=== PATIENT | female | born 1965 | race Caucasian/White ===

== ENCOUNTER 2016-11-05 10:25 | Inpatient (IN) | payer MEDICAID, SELFPAY ==
[2016-11-05 11:17] LABS: #Basophils 0.1 thou/uL (0.0-0.2); #Eosinphils 0.2 thou/uL (0.0-0.7); #Lymphocytes 2.1 thou/uL (1.20-3.40); #Monocytes 0.5 thou/uL (0.11-0.59); #Neutrophils 5.4 thou/uL (1.40-6.50); %Basophils 0.8 % (0.0-1.0); %Eosinophils 2.4 % (0.0-10.0); %Lymphocytes 25.3 % (21.0-51.0); %Monocytes 5.7 % (0.0-10.0); Hematocrit 39.1 % (36.0-47.0); Mean Platelet Volume 7.3 fL (7.4-10.4); Red Blood Cell (RBC) Count 4.16 mill/uL (4.20-5.40); White Blood Cell (WBC) Count 8.3 thou/uL (4.8-10.8)
[2016-11-05 11:41] LABS: ALT (SGPT) 20 U/L (8-55); AST (SGOT) 26 U/L (5-34); Alkaline Phosphatase 117 U/L (40-150); Anion Gap 13 mmol/L (10-20); BUN (Urea Nitrogen) 13 mg/dL (7.0-18.7); Bilirubin, Total 0.6 mg/dL (0.2-1.2); Calc. Creatinine Clearance 0 mL/min (70-130); Calcium 9.2 mg/dL (7.8-10.44); Carbon Dioxide 29 mmol/L (22-29); Chloride 99 mmol/L (98-107); Estimated GFR-MDRD 80; Globulin 4.8 g/dL (2.4-3.5); Protein, Total 8.4 g/dL (6.0-8.3)
[2016-11-05] MEDS ORDERED: cefTRIAXone\\ROCEPHIN 1 GM in Sodium Chloride 0.9% 100 ML IVPB SCH (11:45)
--- NOTE | 2016-11-05 12:46 | CT ---
CONTRAST ENHANCED CT IMAGES SOFT TISSUE NECK: Axial images are obtained from the middle of the orbits through the thoracic inlet. IV contrast was given. HISTORY: A 51-year-old with a history of soft tissue neck masses and swelling. The patient has had prior ant ibiotics which has reduced the swelling. FINDINGS: Contrast-enhanced CT images of the soft tissue neck demonstrate a large approximately 2.2 x 2.3 cm r etropharyngeal mass with central areas of necrosis where there are focal areas of enhancement. Ther e is a large mass involving much of the left thyroid lobe. The margins cannot be determined. There may be a mass which originates in the left thyroid lobe extending into the surrounding soft tissues or there may be a shaan which invades and displaces the left thyroid lobe. The mass appears to be ce ntered in the left neck just below the thyroid cartilage extending medially and posteriorly to the t hyroid cartilage extending upwards posteriorly all the way to the level of the hyoid. The mass exte nds laterally all the way to the left sternocleidomastoid muscle. It displaces the left common martinez tid posteriorly. Flow definitively is not seen in the left internal jugular vein. There is also ex tensive and partially necrotic left level 2, 3, and 4 lymph nodes as well as cystic and enlarged lef t 5A and 5B lymph nodes. Enlarged left supraclavicular lymph nodes are also seen. Due to the cysti c components and the large mass in the left neck malignancy is certainly in the differential diagnos is where this originates from the left thyroid which has metastasized adjacent lymph nodes or possib ly lymphoma or other lymphoproliferative malignancy cannot be excluded. ENT consultation is recomme nded. Additional smaller subcentimeter right level 2, 3, and 4 lymph nodes also seen. IMPRESSION: Large left subglottic neck mass extending posteriorly to the thyroid cartilage in the prevertebral s pace migrating upward to the level of the hypopharyngeal region. There is extensive and marked left multilevel lymphadenopathy and supraclavicular lymphadenopathy. Less significant right-sided lymph adenopathy is also seen. POS: SUE
[2016-11-05] MEDS ORDERED: Meropenem 1 GM VIAL ONE (12:52)
[2016-11-05] MEDS ORDERED: Dexamethasone 4 mg/ml Vial ONE (12:52)
[2016-11-05] MEDS ORDERED: Dextrose 5% in Water 1,000 ML IV PRN (13:39)
[2016-11-05] MEDS ORDERED: Mag-Al 1200 mg/1200 mg/30 ML UDCUP PO PRN (13:39)
[2016-11-05] MEDS ORDERED: Ondansetron HCl/PF 4 MG/2 ML Vial IVP PRN (13:39)
[2016-11-05] MEDS ORDERED: Ondansetron ODT 4 MG TAB PO PRN (13:39)
[2016-11-05] MEDS ORDERED: Dextrose 50% Abboject 50 ML SYRINGE SLOW IVP PRN (13:39)
[2016-11-05] MEDS ORDERED: Bisacodyl 10 MG SUPP PR PRN (13:39)
[2016-11-05] MEDS ORDERED: Insulin Regular 300 UNITS/3 ML VIAL SC PRN ×2 (13:39)
[2016-11-05] MEDS ORDERED: Calcium Carbonate 500 MG ChewTAB PO PRN (13:39)
[2016-11-05] MEDS ORDERED: Acetaminophen 650 MG Suppository PR PRN (13:39)
[2016-11-05] MEDS ORDERED: Acetaminophen 650 MG/20.3 ML UDCUP PO PRN (13:41)
[2016-11-05] MEDS ORDERED: Meropenem 1 GM in Sodium Chloride 0.9% 100 ML IVPB SCH (13:45)
--- NOTE | 2016-11-05 14:04 | HP ---
DATE OF ADMISSION: 11/05/2016 PRIMARY CARE PHYSICIAN: Dr. Benito. CHIEF COMPLAINT: Neck swelling. HISTORY OF PRESENT ILLNESS: Patient is a 51-year-old female with hypertension, diabetes mellitus type 2, and hypothyroidism who presented to the emergency room from primary care physician with above complaints. The patient was seen by her primary care physician today for her routine followup for diabetes. She was found to have neck mass for which she was referred to the emergency room. Over the last 4-6 weeks, patient has difficulty swallowing, especially solid. Her symptoms have progressively worsened. Last week, she had flu-like symptoms including fever and chills that has resolved. She denies any stridor or shortness of breath. She denies any pain in the neck. She denies any history of recent travel or sick contacts. One and a half years ago, she had similar illness for which her primary care physician prescribed antibiotics with good improvement. In the emergency room, initial vital signs showed temperature 98, respirations 18, pulse of 77, blood pressure 131/86 with O2 saturation 98% on room air. She underwent a CT scan of the soft tissue of the neck that was consistent with subglottic neck mass concerning for malignancy. Official CT report is pending at this time. She received Decadron with antibiotics and IV fluid in the emergency room. PAST MEDICAL HISTORY: 1. Diabetes mellitus type 2. 2. Hypertension. 3. Hypothyroidism. PAST SURGICAL HISTORY: x1. ALLERGIES: Patient denies any drug allergies. CURRENT HOME MEDICATIONS: The patient is on some oral medication for diabetes and levothyroxine. She is unable to recall the name. Family to bring the list of medications. SOCIAL HISTORY: Patient currently smokes less than half a pack a day for many years. She denies alcohol or drug use. FAMILY HISTORY: Positive for diabetes. REVIEW OF SYSTEMS: The following complete review of systems was negative, unless otherwise mentioned in the HPI or below: Constitutional: Weight loss or gain, ability to conduct usual activities. Skin: Rash, itching. Eyes: Double vision, pain. ENT/Mouth: Nose bleeding, neck stiffness, pain, tenderness. Cardiovascular: Palpitations, dyspnea on exertion, orthopnea. Respiratory: Shortness of breath, wheezing, cough, hemoptysis, fever or night sweats. Gastrointestinal: Poor appetite, abdominal pain, heartburn, nausea, vomiting, constipation, or diarrhea. Genitourinary: Urgency, frequency, dysuria, nocturia. Musculoskeletal: Pain, swelling. Neurologic/Psychiatric: Anxiety, depression. Allergy/Immunologic: Skin rash, bleeding tendency. PHYSICAL EXAMINATION: VITAL SIGNS: As discussed above. GENERAL: A 51-year-old morbidly obese female in no apparent distress, appears comfortable. HEENT: Head atraumatic, normocephalic. Sclerae are anicteric. Moist mucous membranes. No oral lesion. NECK: Supple, no JVD, no carotid bruit. There was a large area of swelling with some tenderness over the left neck. Again due to body habitus, it cannot be completely evaluated. LUNGS: Clear to auscultation bilaterally. HEART: S1 and S2 present. Regular rate and rhythm. ABDOMEN: Soft, nontender, bowel sounds present. EXTREMITIES: No edema or calf tenderness. NEUROLOGIC: Grossly nonfocal, moves all four extremities. PSYCHIATRY: Alert, awake, oriented x3. SKIN: Warm and dry. LYMPH NODES: No palpable lymph nodes in the neck. PERIPHERAL VASCULAR: Radial pulses palpable bilaterally. MUSCULOSKELETAL: No joint swelling or tenderness. LABORATORY DATA AND IMAGIN. CBC showed WBC of 8.3 with hemoglobin 13.4, hematocrit 39.1, and platelet of 321. 2. Chemistries showed sodium 137, potassium 3.9, chloride 99, bicarbonate 29, BUN 13, creatinine 0.77. CRP was 2.7. test was normal. 3. CT of the neck by my review as discussed above. IMPRESSION AND PLAN: 1. Cervical lymphadenopathy with swallowing difficulty. Exact etiology is unclear. Possibilities include infectious versus malignancy. We will empirically cover her with antibiotics. She received a dose of Decadron in the emergency room. We will discuss with ENT if it is necessary to continue steroids. We will monitor oxygen continuously. Nebulizer treatment will be ordered. Oxygen p.r.n. 2. Diabetes mellitus type 2. We will start her on insulin sliding scale. Home medications are unclear. Patient will currently be n.p.o. until ENT evaluation. 3. Hypertension, diet controlled. We will monitor. 4. Hypothyroidism. Home medications are unclear. 5. Morbid Obesity BMI >50 6. Chronic kidney disease stage 2. Plan of care was discussed with the patient. She stated understanding. Please note that patient is Armenian-speaking only. History was obtained with the help of cut order hand. KRISTAL
[2016-11-05 15:36] VITALS: BMI 54.3
[2016-11-05] MEDS ORDERED: Lidocaine 1% (PF) 30 ML VIAL ONE (16:30)
[2016-11-05] MEDS ORDERED: ISOVUE-370 76%-LOCM 1 ML ONE (16:41)
[2016-11-05] MEDS: Meropenem 1 GM in Sodium Chloride 0.9% 100 ML IVPB SCH ×2 (17:05→22:30)
[2016-11-05] MEDS: Sodium Chloride 0.9% 1,000 ML IV SCH ×2 (17:15→22:33)
[2016-11-06] MEDS: Meropenem 1 GM in Sodium Chloride 0.9% 100 ML IVPB SCH (05:15)
[2016-11-06] MEDS: Sodium Chloride 0.9% 1,000 ML IV SCH ×2 (05:16→10:24)
[2016-11-06 05:17] LABS: #Lymphocytes 1.3 thou/uL (1.20-3.40); #Monocytes 0.2 thou/uL (0.11-0.59); #Neutrophils 6.2 thou/uL (1.40-6.50); %Basophils 0.1 % (0.0-1.0); %Eosinophils 0.1 % (0.0-10.0); %Lymphocytes 16.9 % (21.0-51.0); %Monocytes 2.4 % (0.0-10.0); Hematocrit 36.9 % (36.0-47.0); Mean Platelet Volume 7.7 fL (7.4-10.4); Red Blood Cell (RBC) Count 3.93 mill/uL (4.20-5.40); White Blood Cell (WBC) Count 7.7 thou/uL (4.8-10.8)
[2016-11-06 05:48] LABS: Anion Gap 13 mmol/L (10-20); BUN (Urea Nitrogen) 10 mg/dL (7.0-18.7); BUN/Creatinine Ratio 13.51; Calc. Creatinine Clearance 166 mL/min (70-130); Calcium 8.7 mg/dL (7.8-10.44); Carbon Dioxide 24 mmol/L (22-29); Chloride 104 mmol/L (98-107); Estimated GFR-MDRD 83; Magnesium 2.2 mg/dL (1.6-2.6); Phosphorus 3.5 mg/dL (2.3-4.7)
--- NOTE | 2016-11-06 08:08 | PDOC.PN ---
- Subjective Encounter Start Date: 11/06/16 Encounter Start Time: 08:04 Patient seen and examined. No new complaints. No overnight events. s/p biopsy yesterday by Dr Rascon - Objective Resuscitation Status: Resuscitation Status FULL:Full Resuscitation MAR Reviewed: Yes Vital Signs & Weight: Vital Signs (12 hours) Temp Pulse Resp BP Pulse Ox 11/06/16 07:34 97.9 F 76 16 11/06/16 07:33 97.9 F 76 16 146/67 H 11/06/16 07:06 94 L 11/06/16 04:00 97.9 F 81 18 152/67 H 96 11/06/16 00:00 97.9 F 82 20 151/89 H 95 Weight Weight 251 lb 5.231 oz I&O: 11/05/16 11/06/16 11/07/16 06:59 06:59 06:59 Intake Total 1640 Balance 1640 Result Diagrams: 11/06/16 04:57 11/06/16 04:57 Additional Labs: Accuchecks 11/06/16 11/05/16 11/05/16 05:18 20:21 17:07 POC Glucose 192 H 257 H 189 H Phys Exam - Physical Examination Constitutional: NAD Respiratory: no wheezing, no rhonchi Cardiovascular: RRR, no rub Gastrointestinal: soft, non-tender, positive bowel sounds Musculoskeletal: no edema Neurological: moves all 4 limbs Dx/Plan - Plan IMPRESSION: 1. Cervical lymphadenopathy with swallowing difficulty. ENT/ID following, NPO 2. Diabetes mellitus type 2. on insulin sliding scale. 3. Hypertension, diet controlled. 4. Hypothyroidism. 5. Morbid Obesity BMI >50 6. Chronic kidney disease stage 2. PLAN: * NPO for biopsy today * Resume Levothyroxine * Cont Meropenem * Cont current meds as below Review of Systems - Review of Systems Constitutional: negative: Fever, Chills, Sweats, Weakness, Malaise, Other Respiratory: negative: Cough, Dry, Shortness of Breath, Hemoptysis, SOB with Excertion, Pleuritic Pain, Sputum, Wheezing Cardiovascular: negative: Chest Pain, Palpitations, Orthopnea, Paroxysmal Noc. Dyspnea, Edema, Light Headedness, Other Gastrointestinal: negative: Nausea, Vomiting, Abdominal Pain, Diarrhea, Constipation, Melena, Hematochezia, Other Neurological: negative: Weakness, Numbness, Incoordination, Change in Speech, Confusion, Seizures, Other - Medications/Allergies Allergies/Adverse Reactions: Allergies Allergy/AdvReac Type Severity Reaction Status Date / Time No Known Allergies Allergy Verified 11/05/16 15:40 Medications: Current Medications Acetaminophen (Tylenol) 650 mg NM Q4H PRN PRN Reason: Headache/Fever or Pain Acetaminophen (Tylenol Elixir) 650 mg PO Q4H PRN PRN Reason: pain/fever Al Hydroxide/Mg Hydroxide (Maalox) 30 ml PO Q6H PRN PRN Reason: Heartburn or Indigestion Bisacodyl (Dulcolax) 10 mg NM Q24H PRN PRN Reason: Constipation Calcium Carbonate (Tums) 1,000 mg PO Q4H PRN PRN Reason: Heartburn or Indigestion Dextrose/Water (Dextrose 50%) 25 gm SLOW IVP PRN PRN PRN Reason: Hypoglycemia Glucagon (Glucagon) 1 mg IM PRN PRN PRN Reason: Hypoglycemia Hydralazine HCl (Apresoline) 10 mg SLOW IVP Q4H PRN PRN Reason: SBP Greater Than 180 Dextrose/Water (D5w) 1,000 mls @ 0 mls/hr IV .Q0M PRN; As Directed PRN Reason: Hypoglycemia Meropenem 1 gm/ Sodium (Chloride) 100 mls @ 200 mls/hr IVPB Q8HR [facility] Last Admin: 11/06/16 05:15 Dose: 100 mls Sodium Chloride (Normal Saline 0.9%) 1,000 mls @ 125 mls/hr IV .Q8H [facility] Last Admin: 11/06/16 05:16 Dose: Not Given Insulin Human Regular (Humulin R) 0 units SC .MILD SLIDING SCALE PRN PRN Reason: Mild Correctional Scale Insulin Human Regular (Humulin R) 0 units SC .BEDTIME SLIDING SC PRN PRN Reason: Bedtime Correctional Scale Last Admin: 11/05/16 20:47 Dose: 3 unit Levothyroxine Sodium (Synthroid) 150 mcg PO 0600 [facility] Miscellaneous Medication (Pharmacy To Dose) 1 each IVPB PRN PRN PRN Reason: Pharmacy to dose Ondansetron HCl (Zofran Odt) 4 mg PO Q6H PRN PRN Reason: Nausea/Vomiting Ondansetron HCl (Zofran) 4 mg IVP Q6H PRN PRN Reason: Nausea/Vomiting
--- NOTE | 2016-11-06 13:23 | CON ---
DATE OF CONSULTATION: 11/06/2016 This is in reference to a left neck lymphadenopathy. HISTORY OF PRESENT ILLNESS: A 51-year-old who has a history of type 2 diabetes, hypertension and hy pothyroidism, and reportedly had an episode of pharyngitis, which she remembers occurring about a ye ar and a half before. After that, it resolved following antimicrobial therapy and then about a latrice h and a half ago, she developed progressively worsening swelling of the left side of the neck. She had some fever recently. No headaches or visual symptoms. No nasal symptoms. Some odynophagia and posterior oropharynx. No toothache. No neck pain. No cough or sputum production. No chest pain. No abdominal pain or diarrhea. No genitourinary symptoms. No joint symptoms. No neurological sy mptoms. PAST MEDICAL HISTORY: Diabetes type 2, hypertension, hypothyroidism and episode of pharyngitis a co uple years ago. PAST SURGICAL HISTORY: x1. ALLERGIES: None. MEDICATIONS: Currently on Tylenol, Maalox, Dulcolax, Tums, insulin and meropenem. SOCIAL HISTORY: Originally from [place], had been living here for more than 20 years, previously [facility]. She has smoked intermittently. No alcoholic beverage use or drug use. 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 FAMILY HISTORY: Diabetes type 2. PHYSICAL EXAMINATION: VITAL SIGNS: T-max 97.9, blood pressure 140/67, pulse 76, respirations 16 and O2 sat 94%. GENERAL: Appears in no distress. SKIN: Shows the area in the left side of the neck with mass swelling. At the center, there is a pu ncture wound from the recent aspirate completed by Dr. Rascon. No other skin lesions. She has no o ther areas of lymphadenopathy noted. HEENT: Ocular movements are conjugate. Sclerae are white. Pupils are equal. Conjunctivae normal. Nasal passages patent. Ear exam normal. Oral cavity, numerous missing teeth. The remainder ones with quite a bit of decay and gum disease. The left side mass is quite hard to palpation, kind of a rubbery consistency to it, mild tenderness and measures about 5 x 8 cm. LUNGS: Clear to auscultation and percussion. HEART: Normal. ABDOMEN: Soft, not distended or tender. No organomegaly or ascites. No bladder distention. EXTREMITIES: No joint inflammatory activity. Pulses are 1+ in dorsalis pedis. Plantar responses a re flexure. NEUROLOGIC: Cognitive function appears to be intact. Strength in all extremities is 5/5. LABORATORY DATA: White cell count 7.7, hemoglobin 12.7, platelets 326 with 80% neutrophils. Creati nine 0.74, sodium 137, glucose 200 and calcium 8.7. CRP 2.7. Liver profile normal. Albumin 3.6. Microbiology: Two sets of blood cultures thus far no growth. Soft tissue neck CT with large left s ubglottic neck mass extending posteriorly to the thyroid cartilage, migrating upward to the level of the hypopharyngeal region, extensive marked left multilevel lymphadenopathy and supraclavicular lym phadenopathy, also some lymphadenopathy on the right side. Pathology specimen pending at this time for cytology and flow cytometry. ASSESSMENT: 1. Diabetes type 2. 2. Progressively enlarging left-sided neck mass with lymphadenopathy. DISCUSSION: Differential diagnosis includes lymphoma versus squamous cell carcinoma versus mycobact erial infection. An acute bacterial process is less likely. Fungal infection including coccidioido mycosis is less likely. Wait on the flow cytometry results and primarily discontinue antimicrobial therapy. Depending on those results, further workup might be necessary.
[2016-11-06 16:33] VITALS: BP 133/63; TEMP 98
--- NOTE | 2016-11-06 18:29 | DIS ---
DATE OF DISCHARGE: 11/06/2016 DISCHARGE DISPOSITION: Home. DISCHARGE INSTRUCTIONS AND FOLLOWUP: 1. Follow up with primary care physician, Dr. Kirti Benito in 1 week. 2. Follow up with ENT, Dr. Azar Rascon in next 2 to 3 days for biopsy report. 3. Follow up with Infectious Disease, Dr. Knott next week. 4. Hold metformin for 1 more day. ALLERGIES: No known drug allergies. DISCHARGE MEDICATIONS: Same as admission medication. Levothyroxine 250 mcg daily, metformin 500 mg daily, zcax-phe-udfvica iron supplements. BRIEF HOSPITAL COURSE: The patient is a 51-year-old female with diabetes mellitus type 2, hypertens ion, and hypothyroidism, who was sent to the emergency room from a PCP's office due to neck swelling . CT scan of the neck in the emergency room was consistent with cervical lymphadenopathy. She unde rwent fine needle aspiration by Dr. Rascon. She was also evaluated by Infectious Disease, Dr. Knott . She was initially placed on antibiotic that has been discontinued per Dr. Knott. Differential di agnosis is probably lymphoma versus squamous cell carcinoma versus mycobacterial infection. Acute b acterial process is less likely per Dr. Knott. Even fungal infection including coccidioidomycosis i s less likely per Dr. Knott. The patient has been cleared by Infectious Disease and ENT for dischar ge. The patient was advised to follow up with ENT and Infectious Disease for biopsy report and furt her management. She appears stable for discharge. Plan of care was discussed with the patient in d etail. She stated understanding. FINAL DIAGNOSES: 1. Cervical lymphadenopathy, status post biopsy. Biopsy report to be followed with ENT as an outpa tient. 2. Diabetes mellitus type 2. 3. Hypertension. 4. Hypothyroidism. 5. Morbid obesity with a body mass index greater than 50. 6. Chronic kidney disease, stage 2. 7. Swallowing difficulty. The patient was able to tolerate mechanical soft diet. Plan of care was discussed with the patient. She stated understanding.
[2016-11-07] MEDS ORDERED: Levothyroxine Sodium 150 MCG TAB PO SCH (06:00)
--- NOTE | 2016-11-09 08:59 | OP ---
PREOPERATIVE DIAGNOSIS: Left large obstructive neck mass. POSTOPERATIVE DIAGNOSIS: Left large obstructive neck mass. PROCEDURE PERFORMED: Fine needle aspiration of left large neck mass. PROCEDURE IN DETAIL: After consent was obtained, the patient was identified and consent was obtaine d, the left neck was prepped and draped in sterile fashion. Local anesthesia was obtained with 1% l idocaine 1:100,000 epinephrine infiltrated with a 27 gauge needle, then with a 21-gauge needle multi ple passes were made into the mass and sent for histologic medium, it was sent for lymphoma panel as well as general cytology. Pressure was then held on the wound and a sterile dressing was applied. The patient was then stable and returned to normal activity.
== END 2016-11-06 16:46 | disposition home or self-care (01) | DRG 815 ==
LOC: ERS 10:25 → ERHOLD 12:41 → ONC 15:10
PROVIDERS: ADMIT Internal Medicine; ATTEND Internal Medicine
PROC: 0H94XZX Drainage of Neck Skin, External Approach, Diagnostic (ICD-10-PCS; principal; 2016-11-04)
DX: R59.0 Localized enlarged lymph nodes (principal); Z68.43 Body mass index [BMI] 50.0-59.9, adult; I12.9 Hypertensive chronic kidney disease with stage 1 through stage 4 chronic kidney disease, or unspecified chronic kidney disease; E03.9 Hypothyroidism, unspecified; E11.9 Type 2 diabetes mellitus without complications; N18.2 Chronic kidney disease, stage 2 (mild); F17.210 Nicotine dependence, cigarettes, uncomplicated; E66.01 Morbid (severe) obesity due to excess calories; Z79.4 Long term (current) use of insulin; Z83.3 Family history of diabetes mellitus
CPT/HCPCS: 36415; 36416; 70491; 80053; 80069; 83735; 84703; 85025; 85652; 86140; 87040; 88173; 88184; 94760; 96361; 96365; 96367; 96375; J0696; J1100; J1815; J2001; J2185; J7050

== ENCOUNTER 2016-11-25 06:35 | Inpatient (IN) | payer OTHER, SELFPAY ==
[2016-11-25 08:34] LABS: Hematocrit 37.1 % (36.0-47.0)
[2016-11-25 08:54] LABS: Anion Gap 12 mmol/L (10-20); BUN (Urea Nitrogen) 15 mg/dL (7.0-18.7); Calc. Creatinine Clearance 155 mL/min (70-130); Carbon Dioxide 28 mmol/L (22-29); Chloride 100 mmol/L (98-107); Estimated GFR-MDRD 77
[2016-11-25] MEDS ORDERED: Lidocaine 1% w/Epinephrine 1:200K 30 ML VIAL ONE (10:30)
[2016-11-25] MEDS ORDERED: Fentanyl 100 MCG/2 ML VIAL ONE ×2 (10:35→12:05)
[2016-11-25] MEDS ORDERED: Midazolam HCl 2 mg/2 ml Vial ONE (10:49)
[2016-11-25] MEDS ORDERED: Lidocaine 2% w/Epinephrine 1:200K 20 ML VIAL ONE (10:55)
[2016-11-25] MEDS ORDERED: Lidocaine 2% Jelly 5 ML TUBE ONE (10:55)
[2016-11-25] MEDS ORDERED: Dexamethasone 20 MG/5 ML VIAL ONE (11:06)
[2016-11-25] MEDS ORDERED: Ondansetron HCl/PF 4 MG/2 ML Vial ONE (11:06)
[2016-11-25] MEDS ORDERED: ePHEDrine/0.9% NaCl/PF SYRINGE 50 mg/10 ml ONE (11:06)
[2016-11-25] MEDS ORDERED: Propofol 200 MG/20 ML VIAL ONE (11:06)
[2016-11-25] MEDS ORDERED: PHENYLEPHRINE-NS 100 MCG/ML 10 ML SYRINGE ONE (11:06)
[2016-11-25] MEDS ORDERED: Clindamycin/D5W 900 mg/50 ml Premix Bag ONE (13:41)
[2016-11-25] MEDS ORDERED: Bacitracin Zinc Ointment 30 gm TUBE ONE (14:13)
[2016-11-25] MEDS ORDERED: Propofol 1,000 MG/100 ML VIAL IV ONE (15:11)
[2016-11-25 15:50] LABS: Oxyhemoglobin 96.2 % (94.0-97.0); Sodium 136 mmol/L (135-148)
[2016-11-25 15:51] LABS: Mechanical Tidal Volume 500 ml; Mode SIMV; Pressure Support 12 cmH2O; Vent YES
[2016-11-25 16:03] LABS: Anion Gap 14 mmol/L (10-20); BUN (Urea Nitrogen) 16 mg/dL (7.0-18.7); Calc. Creatinine Clearance 148 mL/min (70-130); Calcium 8.6 mg/dL (7.8-10.44); Carbon Dioxide 25 mmol/L (22-29); Chloride 100 mmol/L (98-107); Estimated GFR-MDRD 73
[2016-11-25] MEDS ORDERED: Hydrocodone-Acetamin 15 ML UDCUP PO PRN ×2 (16:05→16:06)
[2016-11-25] MEDS ORDERED: Ondansetron HCl/PF 4 MG/2 ML Vial SLOW IVP PRN (16:11)
[2016-11-25] MEDS ORDERED: Morphine Sulfate 2 MG/ML SYRINGE SLOW IVP PRN (16:14)
[2016-11-25] MEDS ORDERED: DISCONTINUE PREVIOUS NARCOTIC PAIN MEDICATIONS AND BENZODIAZEPINES FS SCH (16:14)
[2016-11-25] MEDS ORDERED: Fentanyl 20 MCG/ML 250 ML IVPB SCH (16:14)
[2016-11-25] MEDS ORDERED: Lorazepam 2 MG/ML VIAL SLOW IVP PRN (16:14)
[2016-11-25] MEDS: Sodium Chloride 0.45% 1,000 ML IV SCH (16:27)
--- NOTE | 2016-11-25 16:27 | RAD ---
SINGLE VIEW OF THE CHEST: COMPARISON: 10/11/03. HISTORY: Tracheostomy placement. FINDINGS: A single view of the chest shows a normal-size cardiomediastinal silhouette. There is a tracheostom y with its tip in the midline overlying the trachea. Overlying skin collin are present. There is no evidence of consolidation, mass, pneumothorax, or pleural effusion. IMPRESSION: Status post tracheostomy placement without evidence of complication. POS: SUE
[2016-11-25] MEDS: cefTRIAXone\\ROCEPHIN 1 GM in Sodium Chloride 0.9% 100 ML IVPB SCH (16:29)
[2016-11-25 16:32] LABS: Band 27 % (5-11); Hematocrit 35.5 % (36.0-47.0); Mean Platelet Volume 7.5 fL (7.4-10.4); Neutrophil 69 % (42-75)
[2016-11-25] MEDS ORDERED: Dextrose 5% in Water 1,000 ML IV PRN (17:19)
[2016-11-25] MEDS ORDERED: Dextrose 50% Abboject 50 ML SYRINGE IVP PRN (17:19)
[2016-11-25] MEDS ORDERED: Sodium Bicarb 50 MEQ/50 ML Abboject 8.4% SYRINGE ONE (18:07)
[2016-11-25] MEDS ORDERED: Calcium Chloride 1 GM/10 ML Abboject SYRINGE ONE (18:11)
[2016-11-25] MEDS: Propofol 1,000 MG/100 ML VIAL IV PRN ×2 (18:12→23:12)
[2016-11-25] MEDS: Insulin Regular 300 UNITS/3 ML VIAL SC PRN ×2 (18:13→21:15)
[2016-11-25] MEDS ORDERED: Nystatin Powder 15 GM BOT TOP PRN (19:15)
[2016-11-25] MEDS: Clindamycin/D5W 900 MG in Premix Bag 1 BAG IVPB SCH (21:12)
--- NOTE | 2016-11-26 00:53 | OP ---
PREOPERATIVE DIAGNOSES: 1. Thyroid mass. 2. Dysphagia. 3. Dysphonia. POSTOPERATIVE DIAGNOSES: 1. Papillary thyroid cancer. 2. Thyroid mass. 3. Dysphagia. 4. Dysphonia. SURGEON: Neil Villanueva M.D. STONE CUTTER: Azar Rascon M.D. ESTIMATED BLOOD LOSS: 300 mL. COMPLICATIONS: None. ANESTHESIA: GETA with laryngeal monitoring. PROCEDURES: 1. Total thyroidectomy. 2. Left modified radical neck dissection. 3. Tracheostomy. PROCEDURE IN DETAIL: The patient was taken to the operating room and placed supine on the table. A wake intubation was performed with the flexible laryngoscope. There was severe distortion of the la ryngeal apparatus from the large thyroid mass. Successful intubation was obtained and the laryngeal tube was confirmed to be between the vocal cords bilaterally. Prior to advancement of the tube, it was noted that it appeared that both vocal cords were moving; however, they were limited in the mov ement. Following this, the tube was secured in the midline of the upper lip. The patient was prepped and d raped in standard surgical fashion. A horizontal incision was made approximately 2 cm above the ursula rnal notch overlying the thyroid area. It was then extended with a vertical incision up to the ster nocleidomastoid muscle to the mastoid tip. Following this, subplatysmal flaps were elevated superio rly and inferiorly. Following this the lateral neck dissection was performed first. There are mult iple large fixed lymph nodes in left level 2, left level 4, and left level 5. The internal jugular vein was identified inferiorly and was isolated superiorly. The dissection was carried down to the level of the digastric muscle, which was retracted laterally. The sternocleidomastoid muscle was th en incised. The fascia was unwrapped however, there are fixed node, they were invading the medial a spect of the SCM. Therefore, the sternocleidomastoid muscle was harvested, leaving a 2 cm stop at t he clavicle and a 2 cm stop at the mastoid tip area. The spinal accessory nerve was identified then it was coursed medially. It was noted to be tracking lateral to the internal jugular vein in this area. Following this, dissection was carried down to the deep neck musculature including level 5. The neck dissection contents were then removed from a lateral to medial direction. There was comple te involvement of the internal jugular vein. The internal jugular vein was not able to be preserved secondary to cancer involvement. Internal jugular vein was then double suture ligated superiorly a nd inferiorly. The thyroid cancer mass was upbiting the internal carotid artery at the region of th e carotid ball. It was very adherent to the majority of the length of the carotid in the neck; shepherd na, there were portions next to the carotid ball that were unable to be safely removed. After this carotid artery was freed along with the vagus nerve, these structures were retracted laterally. Th ere was a large retroesophageal extension that was carefully dissected, much of the outer muscular l imtiaz of the esophagus that appeared to be involve with this cancer. The mucosa and the submucosal l bucio were left intact and the area of the pharynx in this area. Following this, the neck dissectio n contents were removed laterally and the thyroid lobe was encountered. There was no great distinct ion between the large lateral lymph node and the actual thyroid gland, but the carotid artery protec janine. The left thyroid gland and neck dissection contents were removed much and most of the strap mu scles on this left side where involved with cancer and were harvested taking wide margins of the Bov ie electrocautery. Following this, the right thyroid gland was identified. Dissection immediately adjacent to the right thyroid capsule allowed for identification of the recurrent laryngeal nerve, t he inferior thyroid artery was suture ligated. The inferior thyroid artery was suture ligated immed iately adjacent to the thyroid gland. The right superior and inferior parathyroid glands were ident ified and were protected. Following this, the entire thyroid lesion along with the left neck dissec tion contents was removed from the body. The wound was irrigated. At the inferior level 4, multipl e small stitches were placed with a 4-0 silk ensuring no chyle leak. There were large left thoracic chyle ducts that were visualized from the mass effect of the tumor. Following this, the wound was irrigated. Drains were placed. The decision prior tracheotomy was made secondary to the significan t involvement of the laryngeal musculatures. An inferiorly based Janette flap was created with a 15 b lade and curved scissors and the endotracheal tube was removed and a #6 Shiley trach was then placed into the trachea stoma. Following this, the wound was then closed with Vicryl stitches for the sathish tysmal layers and subcutaneous tissue layers and collin were closed on the skin. The patient yokasta ated the procedure well. She was transferred to the Intensive Care Unit in stable condition.
--- NOTE | 2016-11-26 01:00 | CON ---
DATE OF CONSULTATION: 11/25/2016 HISTORY OF PRESENT ILLNESS: Torie Forman is a 51-year-old female, who was admitted here on 11/05 with complaints of neck swelling. She was complaining of difficulty swallowing as well. She had a CT of her neck which showed a subglottic left neck mass with multilevel lymphadenopathy an d supraclavicular lymphadenopathy. Fine needle aspirate was suspicious for malignancy, but not diagnostic, apparently. She has undergo ne neck surgery today and had a tracheostomy. I was consulted by the nurses when she arrived in the ICU, mechanically ventilated. PAST MEDICAL HISTORY: 1. Remarkable for obesity. 2. Diabetes. 3. Hypertension. 4. Hypothyroidism on replacement. 5. History of . She is reportedly is a smoker, but is a nondrinker and discharged on 11/06; she was sent home on Syn throid and metformin. FAMILY HISTORY: Negative for lung disease at an early age from what I can tell from reviewing old r ecords. PHYSICAL EXAMINATION: GENERAL: She is in no distress. She is quite obese. She has yeast under her breasts and in her gr oin. VITAL SIGNS: Blood pressure 100/56, heart rate 90, respiratory rate is mechanical ventilation. Oxi metry is 99. HEENT: Pupils reactive. She has a tracheostomy in place. LUNGS: Clear. HEART: Regular rhythm. ABDOMEN: Soft. EXTREMITIES: With asymmetry. IMPRESSION: Postop mechanical ventilation after neck surgery. The details of her neck surgery are unclear at this point. PLAN: Mechanical ventilation, chest radiograph, sedation protocol, lab.
[2016-11-26] MEDS: Sodium Chloride 0.45% 1,000 ML IV SCH ×2 (01:15→09:27)
[2016-11-26 04:20] LABS: Band 19 % (5-11); Hematocrit 35.1 % (36.0-47.0); Mean Platelet Volume 7.6 fL (7.4-10.4); Neutrophil 73 % (42-75); Red Blood Cell (RBC) Count 3.77 mill/uL (4.20-5.40)
[2016-11-26 04:21] LABS: Anion Gap 15 mmol/L (10-20); BUN (Urea Nitrogen) 13 mg/dL (7.0-18.7); Calc. Creatinine Clearance 153 mL/min (70-130); Calcium 7.8 mg/dL (7.8-10.44); Carbon Dioxide 21 mmol/L (22-29); Chloride 100 mmol/L (98-107); Estimated GFR-MDRD 76
[2016-11-26] MEDS: Clindamycin/D5W 900 MG in Premix Bag 1 BAG IVPB SCH ×3 (05:23→21:10)
[2016-11-26] MEDS: Propofol 1,000 MG/100 ML VIAL IV PRN ×2 (05:23→09:29)
[2016-11-26] MEDS: Insulin Regular 300 UNITS/3 ML VIAL SC PRN ×2 (05:32→10:42)
[2016-11-26] MEDS: Levothyroxine Sodium 125 MCG TAB PO SCH (06:22)
[2016-11-26 06:47] LABS: Oxyhemoglobin 96.1 % (94.0-97.0); Sodium 133 mmol/L (135-148)
[2016-11-26 06:48] LABS: Mechanical Tidal Volume 500 ml; Mode SIMV; Pressure Support 12 cmH2O; Vent YES
--- NOTE | 2016-11-26 08:00 | RAD ---
1 VIEW CHEST: Date: 11/26/16 HISTORY: Respiratory distress. Ventilated patient. COMPARISON: 11/25/16. FINDINGS: Portable semiupright chest demonstrates postsurgical change with skin collin and a tracheostomy. Th ere is slight progression of interstitial opacity in the left lung base which obscures the left joann diaphragm. Adequate aeration of the upper lungs. No pneumothorax. IMPRESSION: Worsening opacification of left lung base. Continued surveillance is recommended. POS: [facility]
--- NOTE | 2016-11-26 09:06 | EKG ---
Test Reason : PREOP Blood Pressure : / mmHG Vent. Rate : 063 BPM Atrial Rate : 063 BPM P-R Int : 152 ms QRS Dur : 082 ms QT Int : 424 ms P-R-T Axes : 056 015 042 degrees QTc Int : 433 ms Normal sinus rhythm Normal ECG No previous ECGs available Confirmed by WESLY PERKINS ([id number]) on 11/26/2016 9:05:49 AM Referred By: RUBY Confirmed By:WESLY PERKINS
[2016-11-26] MEDS: Enoxaparin Sodium 40 MG/0.4 ML SYRINGE SC SCH (09:26)
[2016-11-26] MEDS: Prenatal Vitamin 1 TAB PO SCH (09:27)
[2016-11-26] MEDS: cefTRIAXone\\ROCEPHIN 1 GM in Sodium Chloride 0.9% 100 ML IVPB SCH (16:30)
[2016-11-26] MEDS: D5 1/2 NS w/20 mEq KCL 1,000 ML IV SCH (16:47)
--- NOTE | 2016-11-26 17:42 | PRG ---
DATE OF SERVICE: 11/26/2016 SUBJECTIVE: Ms. Forman did well overnight. Her sedation was held this morning. She was placed on a trach collar. She has done well throughout the day on the trach collar. OBJECTIVE: VITAL SIGNS: Heart rate is 98, respiratory rate is 30, oximetry is 99, blood pressure is 147/74. L UNGS: Clear. HEART: Regular rhythm. ABDOMEN: Soft. LABORATORY DATA: White count 18, hemoglobin 11.9, platelets 356. Sodium 133, potassium 3.4, chlori de 100, bicarbonate 21, BUN 13, creatinine 0.8. Glucose 322, she is on sliding scale insulin. IMPRESSION: 1. Status post resection of a neck mass. 2. Status post tracheostomy. 3. Diabetes. 4. Obesity. PLAN: Swallowing evaluation. Chest radiograph is suggestive of atelectasis at the left base. I do ubt she has pneumonia. We will continue to watch her closely.
[2016-11-27] MEDS: Insulin Regular 300 UNITS/3 ML VIAL SC PRN ×4 (00:25→18:19)
[2016-11-27] MEDS: D5 1/2 NS w/20 mEq KCL 1,000 ML IV SCH ×2 (03:11→13:53)
[2016-11-27 04:31] LABS: Band 1 % (5-11); Hematocrit 33.2 % (36.0-47.0); Mean Platelet Volume 7.4 fL (7.4-10.4); Neutrophil 87 % (42-75); Red Blood Cell (RBC) Count 3.54 mill/uL (4.20-5.40); White Blood Cell (WBC) Count 14.2 thou/uL (4.8-10.8)
[2016-11-27 04:35] LABS: Anion Gap 14 mmol/L (10-20); BUN (Urea Nitrogen) 6 mg/dL (7.0-18.7); Calc. Creatinine Clearance 185 mL/min (70-130); Calcium 6.7 mg/dL (7.8-10.44); Carbon Dioxide 25 mmol/L (22-29); Chloride 95 mmol/L (98-107); Estimated GFR-MDRD Greater than 90
[2016-11-27] MEDS: Levothyroxine Sodium 125 MCG TAB PO SCH (05:20)
[2016-11-27] MEDS: Clindamycin/D5W 900 MG in Premix Bag 1 BAG IVPB SCH ×3 (05:20→21:44)
[2016-11-27] MEDS: Enoxaparin Sodium 40 MG/0.4 ML SYRINGE SC SCH (08:51)
[2016-11-27] MEDS: Prenatal Vitamin 1 TAB PO SCH (08:52)
--- NOTE | 2016-11-27 08:54 | PRG ---
DATE OF SERVICE: 11/27/2016 Ms. Forman did well overnight. She has not completed her swallowing evaluation yet. PHYSICAL EXAMINATION: VITAL SIGNS: She is afebrile, heart rate 90, respiratory rate 21, oximetry is 99, blood pressure 14 0/92. LUNGS: Lungs are clear. HEART: Regular rhythm. ABDOMEN: Soft. LABORATORY DATA: White count 14.2, hemoglobin 11.1, platelets 313. Electrolytes; sodium 131, potassium 3.3, chloride 95, bicarbonate 25, BUN 6, creatinine 0.66, glucos es have been from 148 to 287, calcium is low at 6.7. IMPRESSION: Status post thyroidectomy. Her calcium will need to be monitored. She is medically stable. She needs swallowing evaluation today. If she passes a swallowing evaluat ion she needs to start back on her diabetes medicines that she was taking at home.
--- NOTE | 2016-11-27 16:12 | RAD ---
PORTABLE AP ABDOMINAL RADIOGRAPH 11/27/16 HISTORY: Dobhoff feeding tube placement. FINDINGS: Single AP abdominal radiograph demonstrates a Dobhoff feeding tube noted in place which is coiled ov erlying the left upper quadrant with the tip overlying the expected location of the gastric fundus. Bowel gas pattern is nonspecific. Right abdomen is excluded from view. There is suggestion of increa sed density at the left lung base, some of this is probably related to overlying soft tissue density . IMPRESSION: Dobhoff feeding tube noted in place which is coiled overlying the left quadrant with tip overlying t he expected location of the gastric fundus. POS: [facility]
[2016-11-27] MEDS ORDERED: Sodium Bicarbonate Tab 325 MG TAB PER TUBE PRN (16:31)
[2016-11-27] MEDS ORDERED: Pancrelipase DR 12000 1 CAP FS PRN (16:31)
[2016-11-27] MEDS: cefTRIAXone\\ROCEPHIN 1 GM in Sodium Chloride 0.9% 100 ML IVPB SCH (16:37)
--- NOTE | 2016-11-27 18:27 | RAD ---
RADIOGRAPH ABDOMEN 1 VIEW 11/27/16, 3:50 p.m. HISTORY: Dobhoff tube placement in 51-year-old female. COMPARISON: 11/27/16, 1:24 p.m. FINDINGS: Dobhoff feeding tube remains with single loop in the left upper quadrant of the abdomen, doubling ba ck upon itself, along the fundus of the stomach. The patient is no longer slightly rotated to the le ft as before. Allowing for the positional difference, there has been no significant interval change. IMPRESSION: 1. Dobhoff feeding tube in proximal stomach. 2. No interval change since 1:24 p.m. POS: [facility]
--- NOTE | 2016-11-27 19:42 | CON ---
DATE OF CONSULTATION: 11/27/2016 REASON FOR CONSULTATION: Ms. Forman is a 51-year-old female, who has been likely diagnosed with a differentiated thyroid cancer. I was asked to see her to discuss her options for treatment. HISTORY OF PRESENT ILLNESS: Ms. Forman speaks only Swazi. She also spent most of her time sleeping and therefore is not able to give most of the history. Most of this history was obtained by talking to her sister. She is a 51-year-old female, who apparently has had a neck mass for at least 1-2 years. This has fluctuated in size and apparently was treated with antibiotics with her primary care physician. More recently, the neck mass was enlarging and she was having pain in the neck. She was seen in the emergency room at [facility]. A CT scan of the neck was performed on 11/05/2016. This showed a fairly extensive mass, which seemed to be involving much of the left lobe of the thyroid. There was also adenopathy. There was displacement of the larynx and left common carotid artery. The mass extended into the retropharyngeal area and retroesophageal area. 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 This was felt to be less likely a lymphoma. She was electively admitted on 11/25/2016, underwent a total thyroidectomy, tracheostomy , and neck dissection. She had very extensive disease. It is clear from the operative report that she had some residual disease remaining after the resection on the carotid artery. She had some involvement of the esophagus. Final pathology from this is currently pending. I was asked to see the patient to discuss her options for treatment. PAST MEDICAL HISTORY: 1. Morbid obesity. 2. Diabetes. 3. Hypertension. 4. Hypothyroidism. 5. Status post . MEDICATIONS: On admission metformin, iron, and Synthroid. ALLERGIES: No known medical allergies. SOCIAL HISTORY: The patient's sister is at her bedside. Apparently, she has been a smoker in the past. She does not drink alcohol. She is uninsured. She was not working at the time of her diagnosis. FAMILY HISTORY: No documented malignancy. REVIEW OF SYSTEMS: Unable to be obtained as the patient since most of the evaluation sleeping. PHYSICAL EXAMINATION: VITAL SIGNS: Height 4 feet 11 inches, weight 245 pounds, blood pressure is 116/ 70, pulse is 85, respirations are 23, and O2 saturation is 99%. GENERAL: She does open eyes and will follow commands. She quickly goes back to sleep. Karnofsky performance status at the present time is 50%. EYES: Pupils are equal, round, and reactive to light. Extraocular movements are intact. ENT: Oral cavity and oropharynx normal without lesion or erythema. NECK: Difficult to examine because of her morbid obesity and tracheostomy placement in recent surgery. I do not feel any palpable mass, but exam is very limited. LUNGS: Clear to auscultation and percussion. Breathing is nonlabored. HEART: Regular rate and rhythm without murmur. No lower extremity edema. ABDOMEN: Morbidly obese. Soft, nontender, nondistended, without mass or hepatosplenomegaly. Liver percussed to a normal size. NEUROLOGIC: She is moving all 4 extremities. RADIOLOGIC: CT scan of the neck was personally reviewed. Again, this shows extensive left thyroid mass with retroesophageal extension. There is displacement of the carotid artery and larynx. She has adenopathy. LABORATORY DATA: Pathology is currently pending. CBC today revealed a white blood cell count of 14,200 with hemoglobin of 11.1, hematocrit of 33.2, platelet count of 313,000. Chemistry group showed sodium of 131, potassium of 3.3. Creatinine was normal at 0.66. Glucose is elevated at 248. ASSESSMENT: Ms. Forman is a 51-year-old female, who likely has a differentiated thyroid cancer. Pathology is currently not available from her resection. I think it is likely going to be differentiated thyroid cancer because of her history of this slowly growing over several years' time frame. She has undergone resection, although some residual disease remains that could not be resected, because of the involvement of the carotid artery. PLAN: I did have a brief discussion with her sister. Again, Ms. Forman spends most of her time sleeping. We will need to wait for the final pathology report before additional recommendations could be made. If this is a differentiated thyroid cancer, then she will need to have her staging completed. I would recommend a CT scan of the chest without IV contrast. IV contrast should not be utilized, as this will interfere with the potential administration of radioactive iodine in the near future. She may need a bone scan if she has a history of having bone pain. I am not able to elucidate that on today's visit. Once her staging is complete, then we can best determine a treatment course for her. Whether or not she has metastatic disease, she will need treatment with radioactive iodine. The radioactive iodine might have to be delayed a little bit, because of her contrast that she received from her CT scan earlier this month. Hopefully, Dr. Villanueva will feel comfortable managing her thyroid medication and making arrangements for the radioactive iodine through the radiology department here at [facility], since we do not have an bar and filler assembler , who manages thyroid cancer. She will need to receive radioactive iodine before she receives any additional treatment. If she has only a disease confined to the neck, then after her radioactive iodine treatment, she will likely need external beam radiation therapy because she has gross residual disease remaining. All this is complicated by the fact that she is currently uninsured. Social work and financial assistance are currently working on this. Hopefully, she can qualify for Medicaid, which can assist with this situation. I will follow her with you and can make more definitive and final recommendations after her pathology and staging is available. Thank you for this interesting consultation. KRISTAL
[2016-11-28] MEDS: Insulin Regular 300 UNITS/3 ML VIAL SC PRN ×4 (01:49→18:18)
[2016-11-28] MEDS: D5 1/2 NS w/20 mEq KCL 1,000 ML IV SCH ×2 (01:49→14:53)
[2016-11-28 04:46] LABS: Anion Gap 12 mmol/L (10-20); BUN (Urea Nitrogen) 10 mg/dL (7.0-18.7); Calc. Creatinine Clearance 174 mL/min (70-130); Calcium 6.8 mg/dL (7.8-10.44); Carbon Dioxide 28 mmol/L (22-29); Chloride 95 mmol/L (98-107); Estimated GFR-MDRD 90
[2016-11-28 05:24] LABS: Band 2 % (5-11); Hematocrit 32.2 % (36.0-47.0); Mean Platelet Volume 7.7 fL (7.4-10.4); Neutrophil 79 % (42-75); Red Blood Cell (RBC) Count 3.41 mill/uL (4.20-5.40); White Blood Cell (WBC) Count 16.1 thou/uL (4.8-10.8)
[2016-11-28] MEDS: Clindamycin/D5W 900 MG in Premix Bag 1 BAG IVPB SCH ×3 (05:28→21:13)
[2016-11-28] MEDS: Acetaminophen 650 MG/20.3 ML UDCUP PER TUBE PRN (05:28)
[2016-11-28] MEDS: Levothyroxine Sodium 125 MCG TAB PO SCH (05:28)
--- NOTE | 2016-11-28 08:29 | PRG ---
DATE OF SERVICE: 11/28/2016 The patient is doing reasonably well. She is having some bloody secretions around her tracheostomy site. PHYSICAL EXAMINATION: VITAL SIGNS: On exam, temperature is 100.1, pulse 101, blood pressure 127/74. 24 hour intake 2902, output 2222. HEENT: Unremarkable. NECK: Trach in good position. Some bloody serosanguineous drainage from around the trach site. LUNGS: Clear. CARDIAC: S1 and S2 regular. ABDOMEN: Soft, obese, nontender. EXTREMITIES: No edema. LABORATORY DATA: White blood count 16, hematocrit 32.2, platelet count 326,000. Sodium 132, potass ium 3.2, chloride 95, CO2 28, BUN 10, creatinine 0.7, glucose 223. ASSESSMENT: 1. Status post thyroidectomy. 2. Mild hypocalcemia. PLAN: 1. Need to watch calcium level given recent thyroidectomy. 2. Replace potassium. 3. Transfer to floor when okay with the ENT Service.
[2016-11-28] MEDS: Enoxaparin Sodium 40 MG/0.4 ML SYRINGE SC SCH (09:11)
[2016-11-28] MEDS: Prenatal Vitamin 1 TAB PO SCH (09:11)
[2016-11-28] MEDS ORDERED: Loperamide HCl 2 MG CAP PER TUBE PRN (16:01)
[2016-11-28] MEDS: Calcium Carbonate + Vit D 1 TAB PO SCH (16:18)
[2016-11-28] MEDS: cefTRIAXone\\ROCEPHIN 1 GM in Sodium Chloride 0.9% 100 ML IVPB SCH (16:18)
[2016-11-28] MEDS: Ondansetron HCl/PF 4 MG/2 ML Vial SLOW IVP PRN (20:00)
[2016-11-29 04:36] LABS: Mean Platelet Volume 7.7 fL (7.4-10.4); Red Blood Cell (RBC) Count 3.38 mill/uL (4.20-5.40); White Blood Cell (WBC) Count 17.2 thou/uL (4.8-10.8)
[2016-11-29 04:41] LABS: Anion Gap 13 mmol/L (10-20); BUN (Urea Nitrogen) 7 mg/dL (7.0-18.7); Calc. Creatinine Clearance 196 mL/min (70-130); Calcium 7.3 mg/dL (7.8-10.44); Carbon Dioxide 28 mmol/L (22-29); Chloride 99 mmol/L (98-107); Estimated GFR-MDRD Greater than 90
[2016-11-29 05:17] LABS: Band 4 % (5-11); Neutrophil 84 % (42-75)
[2016-11-29] MEDS: D5 1/2 NS w/20 mEq KCL 1,000 ML IV SCH ×2 (06:26→17:31)
[2016-11-29] MEDS: Levothyroxine Sodium 125 MCG TAB PO SCH (06:27)
[2016-11-29] MEDS: Clindamycin/D5W 900 MG in Premix Bag 1 BAG IVPB SCH ×3 (06:27→21:07)
--- NOTE | 2016-11-29 08:23 | PRG ---
DATE OF SERVICE: 11/29/2016 SUBJECTIVE: The patient is resting comfortably. She had no questions or complaints. PHYSICAL EXAMINATION: VITAL SIGNS: Temperature is 98.9, pulse 88, blood pressure 137/77, O2 saturation 100%. A 24-hour i ntake 2102, output 1230. HEENT: Unremarkable. NECK: Trach in good position, not much bleeding today. CARDIAC: S1 and S2 regular. LUNGS: Clear. ABDOMEN: Soft, obese, nontender. EXTREMITIES: No edema. LABORATORY DATA: Sodium 136, potassium 3.6, chloride 99, CO2 28, BUN 7, creatinine 0.6, glucose 175 . White blood cell count 17.2, hematocrit 32, platelet count 371. ASSESSMENT: 1. Thyroid cancer. 2. Status post tracheostomy. 3. Postop hypocalcemia which is improved. PLAN: 1. Continue calcium supplementation. 2. Dr. Villanueva is requesting that she stay in the ICU over the weekend in order to watch her airway, no further suggestions at this time.
[2016-11-29] MEDS: Prenatal Vitamin 1 TAB PO SCH (09:11)
[2016-11-29] MEDS: Calcium Carbonate + Vit D 1 TAB PO SCH ×2 (09:11→17:33)
[2016-11-29] MEDS: Enoxaparin Sodium 40 MG/0.4 ML SYRINGE SC SCH (09:12)
[2016-11-29] MEDS: Ondansetron HCl/PF 4 MG/2 ML Vial SLOW IVP PRN ×2 (09:30→17:33)
[2016-11-29] MEDS: Insulin Regular 300 UNITS/3 ML VIAL SC PRN ×3 (12:18→23:19)
[2016-11-29] MEDS: Acetaminophen 650 MG/20.3 ML UDCUP PER TUBE PRN (17:33)
[2016-11-29] MEDS: cefTRIAXone\\ROCEPHIN 1 GM in Sodium Chloride 0.9% 100 ML IVPB SCH (17:33)
[2016-11-29] MEDS ORDERED: FLU VACC QS2017-18 36 mo. & older 0.5 ML SYRINGE IM ONE (21:00)
[2016-11-30 05:09] LABS: Band 4 % (5-11); Mean Platelet Volume 7.2 fL (7.4-10.4); Neutrophil 79 % (42-75); Red Blood Cell (RBC) Count 3.47 mill/uL (4.20-5.40); White Blood Cell (WBC) Count 12.1 thou/uL (4.8-10.8)
[2016-11-30 05:27] LABS: Anion Gap 10 mmol/L (10-20); BUN (Urea Nitrogen) 8 mg/dL (7.0-18.7); Calc. Creatinine Clearance 177 mL/min (70-130); Carbon Dioxide 34 mmol/L (22-29); Chloride 97 mmol/L (98-107); Estimated GFR-MDRD Greater than 90
[2016-11-30] MEDS: D5 1/2 NS w/20 mEq KCL 1,000 ML IV SCH ×2 (06:39→21:26)
[2016-11-30] MEDS: Clindamycin/D5W 900 MG in Premix Bag 1 BAG IVPB SCH ×3 (06:40→21:25)
[2016-11-30] MEDS: Levothyroxine Sodium 125 MCG TAB PO SCH (06:40)
[2016-11-30] MEDS: Insulin Regular 300 UNITS/3 ML VIAL SC PRN ×3 (06:46→23:51)
[2016-11-30] MEDS ORDERED: Scopolamine 1.5 mg/72 hour Patch TD SCH (08:17)
--- NOTE | 2016-11-30 08:42 | PRG ---
DATE OF SERVICE: 11/30/2016 SUBJECTIVE: She continues to have some problems with diarrhea. She is having serosanguineous drain age around tracheostomy site. PHYSICAL EXAMINATION: VITAL SIGNS: Temperature 98.7, pulse 99, blood pressure 149/87, 24-hour intake 2712, output 901. HEENT: Unremarkable. NECK: Tracheostomy in place with serosanguineous drainage. LUNGS: Clear. CARDIAC: S1 and S2 regular. ABDOMEN: Soft. EXTREMITIES: No edema. LABORATORY DATA: White blood cell count 12.1, hematocrit 33, and platelet count 420. Sodium 137, p otassium 3.7, chloride 97, CO2 34, BUN 8, creatinine 0.8, and glucose 184. ASSESSMENT: 1. Status post tracheostomy. 2. Thyroid cancer. 3. Diarrhea. PLAN: 1. Transfer to the intermediate care unit. 2. Add scopolamine patch to see if this will decrease secretions from the trach. 3. Calcium level was come back towards normal; therefore no more supplementation should be needed a lissette which she is already getting better.
[2016-11-30] MEDS: Calcium Carbonate + Vit D 1 TAB PO SCH ×2 (11:26→16:52)
[2016-11-30] MEDS: Enoxaparin Sodium 40 MG/0.4 ML SYRINGE SC SCH (11:27)
[2016-11-30] MEDS: Prenatal Vitamin 1 TAB PO SCH (11:27)
[2016-11-30] MEDS ORDERED: Dexamethasone 10 MG/ML VIAL SLOW IVP SCH (15:30)
--- NOTE | 2016-11-30 15:56 | PRG ---
DATE OF SERVICE: 11/30/2016 SUBJECTIVE: The patient is doing better, out of bed, ambulating in the room. She is still not show ing good involvement or demonstration of usage of the trach occlusion or trach cleaning. Prescripti ons for her trach supplies were given today. Otherwise, she is not having GI complaints. No fevers . Secretions around the trachea stoma area continue to be a concern. OBJECTIVE: VITAL SIGNS: Stable. Afebrile. LUNGS: Bilateral mild expiratory rhonchi. Otherwise clear. HEART: Regular rate and rhythm without murmur. ABDOMEN: Soft, nontender, nondistended, positive bowel sounds. NASAL CAVITY: Left Dobbhoff tube is in place. ORAL CAVITY/ OROPHARYNX: No trismus, no pharyngeal edema or swelling. NECK: There is some left-sided soft edema present. When the patient does cough or stands up there is milky secretions and serosanguineous secretions from the peritracheal area. PROCEDURE: Flexible laryngoscopy was performed at the bedside after topical anesthesia decongestant was applied to the nasal cavity. The nasal cavity and nasopharynx was clear. The Dobbhoff tube is in the appropriate position in the esophageal inlet. There is still significant amount of edema of the glottic area. The epiglottis and superior portions of the area of epiglottic fold were within normal limits. Most of the edema is arising from the left pharynx, left hypopharynx and left vocal cord. The right vocal cord is mobile, but limited. The left vocal cord is difficult to assess. Al l in all the vocal cords appeared to be medially placed. She has poor leakage of air with trach occ lusion during this procedure. ASSESSMENT: Postoperative day #5, status post total thyroidectomy, radical neck dissection. The letha cowan is doing well. PLAN: 1. We will give 20 mg of Decadron today to hopefully help her some of the pharyngeal edema. If it is inflammatory nature from the surgery, hopefully this will help; however, if there is still some r esidual cancer in this area, may not show much improvement; however, if we can establish a slightly better glottic airway, I am hoping that her secretions will decrease. 2. Possible left chyle leak. We are going to hold her Dobbhoff feeds today. Pressure dressing was applied to the left neck area and secured. We will reevaluate her tomorrow. 3. Ambulation. She will be out of bed and ambulatory for the majority of the day. Also a mirror w ill be provided for her to begin self trach occlusion and trach speech trial. Hopefully, we anticip ate downsizing her trach to #4, but some of the swelling is improved, then removed the Dobbhoff tube and allow her to try oral feeds and hopefully will discharge after that if the frothy drains contin ues despite holding her feet with pressure dressings and downsizing her trach or may re-explore the wound on the left side to evaluate for a chyle leak.
[2016-11-30] MEDS: cefTRIAXone\\ROCEPHIN 1 GM in Sodium Chloride 0.9% 100 ML IVPB SCH (16:52)
[2016-12-01 05:27] LABS: Band 2 % (5-11); Hematocrit 30.2 % (36.0-47.0); Mean Platelet Volume 7.2 fL (7.4-10.4); Myelocyte 1 % (0-0); Neutrophil 83 % (42-75); Red Blood Cell (RBC) Count 3.21 mill/uL (4.20-5.40); White Blood Cell (WBC) Count 9.3 thou/uL (4.8-10.8)
[2016-12-01] MEDS: Levothyroxine Sodium 125 MCG TAB PO SCH (05:32)
[2016-12-01] MEDS: Clindamycin/D5W 900 MG in Premix Bag 1 BAG IVPB SCH ×3 (05:32→21:53)
[2016-12-01] MEDS: Insulin Regular 300 UNITS/3 ML VIAL SC PRN (05:45)
[2016-12-01 05:49] LABS: Anion Gap 13 mmol/L (10-20); BUN (Urea Nitrogen) 8 mg/dL (7.0-18.7); Calc. Creatinine Clearance 182 mL/min (70-130); Calcium 8.2 mg/dL (7.8-10.44); Carbon Dioxide 30 mmol/L (22-29); Chloride 97 mmol/L (98-107); Estimated GFR-MDRD Greater than 90
[2016-12-01] MEDS: Enoxaparin Sodium 40 MG/0.4 ML SYRINGE SC SCH (08:12)
[2016-12-01] MEDS: Prenatal Vitamin 1 TAB PO SCH (08:12)
[2016-12-01] MEDS: Calcium Carbonate + Vit D 1 TAB PO SCH ×2 (08:12→17:51)
--- NOTE | 2016-12-01 09:22 | PRG ---
DATE OF SERVICE: 12/01/2016 The patient is doing reasonably well. She continues in the Intermediate Care Unit, continues to hav e some drainage around her tracheostomy site. PHYSICAL EXAMINATION: VITAL SIGNS: Temperature 96.3, pulse 79, respirations 18, O2 sats 96%, blood pressure 124/69. HEENT: Unremarkable. NECK: Trach in good position, serosanguineous drainage coming out from around the trach. LUNGS: Clear. CARDIAC: S1 and S2 regular. ABDOMEN: Soft, obese. EXTREMITIES: No edema. LABORATORY DATA: White blood cell count 9.3, hematocrit 30, platelet count 43. Sodium 136, potassi um 4, chloride 97, CO2 30, BUN 8, creatinine 0.6, glucose 244. ASSESSMENT: 1. Status post total thyroidectomy for thyroid cancer. 2. Status post tracheostomy placement. 3. Severe obesity. PLAN: Tracheostomy weaning by Dr. Villanueva, hopefully can be decannulated prior to discharge.
[2016-12-01] MEDS: D5 1/2 NS w/20 mEq KCL 1,000 ML IV SCH (11:05)
[2016-12-01] MEDS ORDERED: Bacitracin Zinc Ointment 30 gm TUBE ONE (16:08)
[2016-12-01] MEDS ORDERED: Lidocaine 1% w/Epinephrine 1:200K 30 ML VIAL ONE (16:08)
[2016-12-01] MEDS ORDERED: Midazolam HCl 2 mg/2 ml Vial ONE (17:01)
[2016-12-01] MEDS ORDERED: Fentanyl 100 MCG/2 ML VIAL ONE ×2 (17:01→17:49)
[2016-12-01] MEDS ORDERED: Lidocaine 2% PF 10 ML AMP (For Epidural Use) ONE (17:09)
[2016-12-01] MEDS ORDERED: Glycopyrrolate 0.2 MG/ML 5 ML SYRINGE ONE (17:09)
[2016-12-01] MEDS ORDERED: Propofol 200 MG/20 ML VIAL ONE (17:09)
[2016-12-01] MEDS: cefTRIAXone\\ROCEPHIN 1 GM in Sodium Chloride 0.9% 100 ML IVPB SCH (17:51)
[2016-12-01] MEDS ORDERED: Hydrocodone-Acetamin 15 ML UDCUP PER TUBE PRN ×2 (18:52)
[2016-12-01] MEDS: Sodium Chloride 0.45% 1,000 ML IV SCH (21:53)
--- NOTE | 2016-12-02 00:18 | OP ---
DATE OF PROCEDURE: 12/01/2016 PREOPERATIVE DIAGNOSES: 1. 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 SURGEON: Neil Villanueva M.D. ESTIMATED BLOOD LOSS: 10 mL. COMPLICATIONS: None. PROCEDURE: Left neck exploration with closure of left chyle leak and closure of the tracheocutaneou s fistula. ANESTHESIA: GETA COMPLICATIONS: None. BRIEF PREOP NOTE: This 51-year-old female who has a T4B N2B papillary thyroid carcinoma, it is post operative day #6 status post total thyroidectomy and left radical neck dissection. The patient has had continued secretions from the trachea that was thought to be a chyle of nature. These have been complicating her airway and make it difficult to downsize her trach. Risks, benefits, and alternat sean for this procedure were discussed with the patient and the family, they are very eager to proce ed. PROCEDURE: The patient taken to the operating room and placed on the table. General endotracheal a nesthesia was obtained by the Anesthesia staff via the trach tube. The trachea cuff was inflated an d connected to the Anesthesia circuit. The patient was prepped and draped in standard surgical fash ion. Following this, the left neck incision was opened; collin were removed as well as the subcuti cular and platysmal layer stitches. This exposed the previous surgical bed. Following this, after adequate exposure of the trachea was obtained, the tract was removed and replaced with a 7-0 endotra cheal tube that was secured. Following this, the wound was irrigated. The neck was explored. The areas of previous placement over the common duct did not show any obvious leaks, multiple smal l areas were then re-sutured with 4-0 silk stitches. Following this, Tisseal was then placed over t his area allowed to rest for 2 minutes. Following this, the ADONIS drain was placed and the wound was c losed. The previous leakage sites from the left neck contents into the trachea stoma were reapproxi mated and sutured with multiple layers of 2-0 and 3-0 Vicryl stitches. Following this, the endotrac heal tube was removed and a new #6 cuffed Shiley trach was inserted into the trachea. The balloon w as then deflated and then the skin was closed with 2-0 and 3-0 Vicryl stitches on the platysmal laye rs and subcuticular layers. The skin was left closed using collin. The patient tolerated the proc edure well and was returned to the ICU in stable condition.
[2016-12-02 05:22] LABS: ALT (SGPT) 24 U/L (8-55); AST (SGOT) 31 U/L (5-34); Alkaline Phosphatase 186 U/L (40-150); Anion Gap 15 mmol/L (10-20); BUN (Urea Nitrogen) 10 mg/dL (7.0-18.7); Bilirubin, Total 0.5 mg/dL (0.2-1.2); Calc. Creatinine Clearance 169 mL/min (70-130); Calcium 7.7 mg/dL (7.8-10.44); Carbon Dioxide 30 mmol/L (22-29); Chloride 96 mmol/L (98-107); Estimated GFR-MDRD 86; Globulin 4.4 g/dL (2.4-3.5); Protein, Total 7.3 g/dL (6.0-8.3)
[2016-12-02 05:29] LABS: Band 4 % (5-11); Hematocrit 30.9 % (36.0-47.0); Mean Platelet Volume 6.9 fL (7.4-10.4); Myelocyte 1 % (0-0); Neutrophil 62 % (42-75); Red Blood Cell (RBC) Count 3.27 mill/uL (4.20-5.40); White Blood Cell (WBC) Count 11.2 thou/uL (4.8-10.8)
[2016-12-02] MEDS: Sodium Chloride 0.45% 1,000 ML IV SCH (05:59)
[2016-12-02] MEDS: Levothyroxine Sodium 125 MCG TAB PO SCH (05:59)
[2016-12-02] MEDS: Clindamycin/D5W 900 MG in Premix Bag 1 BAG IVPB SCH ×4 (05:59→21:13)
[2016-12-02] MEDS: Enoxaparin Sodium 40 MG/0.4 ML SYRINGE SC SCH (08:16)
[2016-12-02] MEDS: Calcium Carbonate + Vit D 1 TAB PO SCH ×2 (08:16→18:55)
[2016-12-02] MEDS: Prenatal Vitamin 1 TAB PO SCH (08:16)
--- NOTE | 2016-12-02 08:41 | PRG ---
DATE OF SERVICE: 12/02/2016 The patient is doing a little better, was up walking around yesterday. PHYSICAL EXAMINATION: VITAL SIGNS: Temperature is 98.4, pulse 54, respirations 19, O2 sat 97% on 5 liters, blood pressure 130/80. HEENT: Unremarkable. NECK: Trach in good position. LUNGS: Clear anteriorly. CARDIOVASCULAR: S1 and S2 regular. ABDOMEN: Soft. EXTREMITIES: No edema. LABORATORY DATA: White blood cell count 11.2, hematocrit 30.9, platelet count 524. Sodium 137, pot assium 3.7, chloride 96, CO2 30, BUN 15, creatinine 0.7, glucose 130. ASSESSMENT: 1. Status post resection of a thyroid tumor consistent with papillary thyroid carcinoma. 2. Tracheostomy. 3. Respiratory failure. PLAN: The patient looks good enough to be transferred to the floor from my standpoint. I ordered l ab at this point.
[2016-12-02] MEDS ORDERED: Sodium Chloride 0.45% 1,000 ML IV SCH (13:00)
[2016-12-02] MEDS ORDERED: Hydrocodone-Acetamin 15 ML UDCUP PER TUBE PRN (13:02)
[2016-12-02] MEDS: Insulin Regular 300 UNITS/3 ML VIAL SC PRN (21:13)
--- NOTE | 2016-12-02 23:28 | PRG ---
DATE OF SERVICE: 12/02/2016 SUBJECTIVE: She did well overnight. There has been [id number] drainage from the tracheal stoma a neto, also drainage from her procedure last night. She is out of bed and is eager to begin fee ds today. Pain is minimal, 2/10, intermittently. OBJECTIVE: VITAL SIGNS: Stable. Afebrile. NECK: Incision is clean, dry, and intact. There is a slight amount of secretions from the tracheal stoma area, probably much improved from before. No swelling. No signs or symptoms of infection. Voice still . NEUROLOGIC: Cranial nerves II through XII are intact. Alert and oriented . CARDIOVASCULAR: Regular rate and rhythm without murmur. LUNGS: Clear to auscultation bilaterally. LABORATORY DATA: Within normal limits. Calcium is 7.7 ASSESSMENT AND PLAN: Postoperative day #1 for repair of chyle fistula versus tracheocutaneous fistu la. She is doing much better since her procedure last night. We anticipate beginning tube feeds, h opefully oral feeds, by tomorrow. If her home suction machine will be available, we anticipate disc harge to home tomorrow and removal of her left drain on Wednesday or possibly Wednesday.
[2016-12-03 05:40] LABS: Anion Gap 13 mmol/L (10-20); BUN (Urea Nitrogen) 13 mg/dL (7.0-18.7); Calc. Creatinine Clearance 178 mL/min (70-130); Calcium 7.8 mg/dL (7.8-10.44); Carbon Dioxide 32 mmol/L (22-29); Chloride 92 mmol/L (98-107); Estimated GFR-MDRD Greater than 90
[2016-12-03 05:49] LABS: Band 2 % (5-11); Hematocrit 32.3 % (36.0-47.0); Mean Platelet Volume 6.7 fL (7.4-10.4); Neutrophil 66 % (42-75); Polychromasia SLIGHT = 2-3 cells (100X) (0-2/hpf); Reactive Lymphocytes 1 % (0-10); Red Blood Cell (RBC) Count 3.41 mill/uL (4.20-5.40); White Blood Cell (WBC) Count 10.4 thou/uL (4.8-10.8)
[2016-12-03] MEDS: Clindamycin/D5W 900 MG in Premix Bag 1 BAG IVPB SCH ×3 (05:49→21:30)
[2016-12-03] MEDS: Insulin Regular 300 UNITS/3 ML VIAL SC PRN (05:50)
[2016-12-03] MEDS: Enoxaparin Sodium 40 MG/0.4 ML SYRINGE SC SCH (08:35)
[2016-12-03] MEDS ORDERED: FLU VACC QS2017-18 36 mo. & older 0.5 ML SYRINGE IM ONE (09:00)
[2016-12-03] MEDS: Prenatal Vitamin 1 TAB PO SCH (09:19)
[2016-12-03] MEDS: Calcium Carbonate + Vit D 1 TAB PO SCH ×2 (09:20→18:24)
--- NOTE | 2016-12-03 09:40 | PRG ---
DATE OF SERVICE: 12/03/2016 SUBJECTIVE: The patient is sleeping. She has been moved out of the ICU to the floor, she seems to be doing okay. PHYSICAL EXAMINATION: VITAL SIGNS: On exam, temperature 99.0, pulse 96, respirations 20, O2 saturation 97% on 5 liters, b lood pressure 131/77. HEENT: Unremarkable. NECK: Trach in good position. Some serosanguineous drainage. LUNGS: Clear to auscultation. CARDIAC: S1 and S2 regular. ABDOMEN: Soft. EXTREMITIES: No edema. LABORATORY DATA: White blood cell count 10.4, hematocrit 32.3, platelet count 540. Sodium 133, pot assium 3.6, chloride 92, CO2 of 32, BUN 13, creatinine 0.6, glucose 180. ASSESSMENT: 1. Status post thyroidectomy for papillary cancer of the thyroid. 2. Status post surgical revision for a chylous fistula. PLAN: She is continuing IV antibiotics. Increase activity as tolerated. Dr. Bell will return malgorzata orrow.
[2016-12-03] MEDS: Sodium Chloride 0.45% 1,000 ML IV SCH (22:21)
[2016-12-04] MEDS: Clindamycin/D5W 900 MG in Premix Bag 1 BAG IVPB SCH ×3 (05:29→21:25)
[2016-12-04 06:16] LABS: Anion Gap 14 mmol/L (10-20); BUN (Urea Nitrogen) 13 mg/dL (7.0-18.7); Calc. Creatinine Clearance 171 mL/min (70-130); Carbon Dioxide 32 mmol/L (22-29); Chloride 93 mmol/L (98-107); Estimated GFR-MDRD Greater than 90
[2016-12-04 06:26] LABS: Band 5 % (5-11); Hematocrit 33.1 % (36.0-47.0); Mean Platelet Volume 6.8 fL (7.4-10.4); Neutrophil 61 % (42-75); Red Blood Cell (RBC) Count 3.49 mill/uL (4.20-5.40); White Blood Cell (WBC) Count 9.8 thou/uL (4.8-10.8)
[2016-12-04] MEDS: Prenatal Vitamin 1 TAB PO SCH (09:26)
[2016-12-04] MEDS: Calcium Carbonate + Vit D 1 TAB PO SCH ×2 (09:30→18:05)
[2016-12-04] MEDS: Enoxaparin Sodium 40 MG/0.4 ML SYRINGE SC SCH (09:31)
[2016-12-04 12:25] VITALS: BMI 50.7
--- NOTE | 2016-12-04 13:39 | PRG ---
DATE OF SERVICE: 12/04/2016 SUBJECTIVE: I have explained to her in the nursing room that it is important that she keeps trach h umidified air at least over the trach, so she does not have mucus plugging. OBJECTIVE: VITAL SIGNS: Ms. Torie Forman is afebrile, heart rates in the 90s, respiratory rate is in the 20 s, oximetry is 96, blood pressure 126/82. LUNGS: Clear. HEART: Regular rhythm. ABDOMEN: Soft. LABORATORY DATA: White count 9.8, hemoglobin 10.5, platelets 576. Sodium 135, potassium 3.7, chlor ayo 93, bicarbonate 32, BUN 13, creatinine 0.6. IMPRESSION: 1. Status post resection of thyroid cancer. 2. Status post surgery for chylous fistula. PLAN: Continue care per surgery.
[2016-12-04] MEDS: Insulin Regular 300 UNITS/3 ML VIAL SC PRN (14:49)
[2016-12-05] MEDS: Clindamycin/D5W 900 MG in Premix Bag 1 BAG IVPB SCH ×3 (05:47→21:38)
[2016-12-05 06:01] LABS: Anion Gap 12 mmol/L (10-20); BUN (Urea Nitrogen) 8 mg/dL (7.0-18.7); Calc. Creatinine Clearance 183 mL/min (70-130); Calcium 8.4 mg/dL (7.8-10.44); Carbon Dioxide 33 mmol/L (22-29); Chloride 94 mmol/L (98-107); Estimated GFR-MDRD Greater than 90
[2016-12-05 06:43] LABS: Band 3 % (5-11); Hematocrit 31.3 % (36.0-47.0); Mean Platelet Volume 6.7 fL (7.4-10.4); Metamyelocyte 3 % (0-0); Myelocyte 1 % (0-0); Neutrophil 71 % (42-75); Polychromasia SLIGHT = 2-3 cells (100X) (0-2/hpf); Reactive Lymphocytes 1 % (0-10); Red Blood Cell (RBC) Count 3.31 mill/uL (4.20-5.40); White Blood Cell (WBC) Count 8.6 thou/uL (4.8-10.8)
[2016-12-05] MEDS: Enoxaparin Sodium 40 MG/0.4 ML SYRINGE SC SCH (08:50)
[2016-12-05] MEDS: Calcium Carbonate + Vit D 1 TAB PO SCH ×2 (08:50→16:15)
[2016-12-05] MEDS: Prenatal Vitamin 1 TAB PO SCH (08:50)
[2016-12-05] MEDS ORDERED: FLU VACC QS2017-18 36 mo. & older 0.5 ML SYRINGE IM ONE ×2 (09:00)
[2016-12-05] MEDS ORDERED: Hydrocodone-Acetamin 15 ML UDCUP PO PRN (11:14)
[2016-12-06] MEDS: Clindamycin/D5W 900 MG in Premix Bag 1 BAG IVPB SCH ×3 (05:13→21:12)
[2016-12-06 06:17] LABS: Band 7 % (5-11); Hematocrit 31.2 % (36.0-47.0); Mean Platelet Volume 6.5 fL (7.4-10.4); Neutrophil 56 % (42-75); White Blood Cell (WBC) Count 8.4 thou/uL (4.8-10.8)
[2016-12-06 06:49] LABS: Anion Gap 13 mmol/L (10-20); BUN (Urea Nitrogen) 8 mg/dL (7.0-18.7); Calc. Creatinine Clearance 172 mL/min (70-130); Calcium 8.3 mg/dL (7.8-10.44); Carbon Dioxide 33 mmol/L (22-29); Chloride 93 mmol/L (98-107); Estimated GFR-MDRD 87
[2016-12-06] MEDS: Calcium Carbonate + Vit D 1 TAB PO SCH ×2 (09:13→16:51)
[2016-12-06] MEDS: Prenatal Vitamin 1 TAB PO SCH (09:13)
[2016-12-06] MEDS: Enoxaparin Sodium 40 MG/0.4 ML SYRINGE SC SCH (09:13)
[2016-12-06] MEDS: Insulin Regular 300 UNITS/3 ML VIAL SC PRN ×2 (18:13→21:14)
[2016-12-07] MEDS: Clindamycin/D5W 900 MG in Premix Bag 1 BAG IVPB SCH ×2 (05:48→15:59)
[2016-12-07 06:42] LABS: Anion Gap 12 mmol/L (10-20); BUN (Urea Nitrogen) 6 mg/dL (7.0-18.7); Calc. Creatinine Clearance 183 mL/min (70-130); Calcium 8.6 mg/dL (7.8-10.44); Carbon Dioxide 34 mmol/L (22-29); Chloride 94 mmol/L (98-107); Estimated GFR-MDRD Greater than 90
[2016-12-07 07:01] LABS: Band 2 % (5-11); Hematocrit 31.2 % (36.0-47.0); Mean Platelet Volume 6.6 fL (7.4-10.4); Neutrophil 68 % (42-75); Red Blood Cell (RBC) Count 3.28 mill/uL (4.20-5.40); White Blood Cell (WBC) Count 7.1 thou/uL (4.8-10.8)
[2016-12-07] MEDS: Calcium Carbonate + Vit D 1 TAB PO SCH (09:39)
[2016-12-07] MEDS: Prenatal Vitamin 1 TAB PO SCH (09:39)
[2016-12-07] MEDS: Enoxaparin Sodium 40 MG/0.4 ML SYRINGE SC SCH (09:40)
[2016-12-07 15:38] VITALS: BP 120/76; TEMP 98.9
== END 2016-12-07 16:41 | disposition home or self-care (01) | DRG 11 ==
LOC: SURG A 06:35 → CCU 14:48 → IMCU/EMU 11-30 13:11 → SURG A 12-02 13:22
PROVIDERS: ADMIT Otolaryngology Plastic Surgery within the Head & Neck; ATTEND Otolaryngology Plastic Surgery within the Head & Neck
PROC: 0GTK0ZZ Resection of Thyroid Gland, Open Approach (ICD-10-PCS; principal; 2016-11-25)
PROC: 0B110F4 Bypass Trachea to Cutaneous with Tracheostomy Device, Open Approach (ICD-10-PCS; 2016-11-25)
PROC: 07T20ZZ Resection of Left Neck Lymphatic, Open Approach (ICD-10-PCS; 2016-11-25)
PROC: 5A1945Z Respiratory Ventilation, 24-96 Consecutive Hours (ICD-10-PCS; 2016-11-25)
PROC: 0BQ10ZZ Repair Trachea, Open Approach (ICD-10-PCS; 2016-11-25)
PROC: 0B21XFZ Change Tracheostomy Device in Trachea, External Approach (ICD-10-PCS; 2016-12-01)
PROC: 0J953ZX Drainage of Left Neck Subcutaneous Tissue and Fascia, Percutaneous Approach, Diagnostic (ICD-10-PCS; 2016-12-04)
DX: C73 Malignant neoplasm of thyroid gland (principal); J96.90 Respiratory failure, unspecified, unspecified whether with hypoxia or hypercapnia; Z68.42 Body mass index [BMI] 45.0-49.9, adult; J95.04 Tracheo-esophageal fistula following tracheostomy; I89.8 Other specified noninfective disorders of lymphatic vessels and lymph nodes; R19.7 Diarrhea, unspecified; E83.51 Hypocalcemia; E11.9 Type 2 diabetes mellitus without complications; E66.01 Morbid (severe) obesity due to excess calories; E03.9 Hypothyroidism, unspecified; Z79.84 Long term (current) use of oral hypoglycemic drugs; I10 Essential (primary) hypertension; Y83.8 Other surgical procedures as the cause of abnormal reaction of the patient, or of later complication, without mention of misadventure at the time of the procedure
CPT/HCPCS: 36415; 36416; 71010; 74000; 80048; 80053; 82805; 84703; 85007; 85014; 85027; 87324; 87449; 88305; 88307; 88309; 88331; 93005; 93010; 94002; 94003; 94640; A4216; G8978-GP-CK; G8979-GP-CI; G8996-GN-CK; G8996-GN-CM; G8996-GN-CN; G8997-GN-CK; G9171-GN-CM; G9172-GN-CK; J0696; J1100; J1170; J1650; J1815; J2001; J2250; J2270; J2405; J2704; J3010; J3490; J7050; J7620

== ENCOUNTER 2016-12-11 16:33 | Emergency (ER) | payer OTHER, SELFPAY ==
[~2016-12-11 16:33] MED LIST: ISOVUE-370 76%-LOCM 1 ML ONE
[2016-12-11 17:56] LABS: #Eosinphils 0.3 thou/uL (0.0-0.7); #Lymphocytes 2.7 thou/uL (1.20-3.40); #Monocytes 0.7 thou/uL (0.11-0.59); #Neutrophils 5.1 thou/uL (1.40-6.50); %Basophils 0.5 % (0.0-1.0); %Eosinophils 3.1 % (0.0-10.0); %Lymphocytes 30.5 % (21.0-51.0); %Monocytes 7.9 % (0.0-10.0); Red Blood Cell (RBC) Count 3.68 mill/uL (4.20-5.40); White Blood Cell (WBC) Count 8.8 thou/uL (4.8-10.8)
[2016-12-11 18:13] LABS: Lactic Acid - Sepsis 5.8 mmol/L (0.5-2.2)
[2016-12-11 18:18] LABS: ALT (SGPT) 22 U/L (8-55); AST (SGOT) 36 U/L (5-34); Alkaline Phosphatase 98 U/L (40-150); Anion Gap 17 mmol/L (10-20); BUN (Urea Nitrogen) 9 mg/dL (7.0-18.7); Bilirubin, Total 0.3 mg/dL (0.2-1.2); Calc. Creatinine Clearance 0 mL/min (70-130); Calcium 8.4 mg/dL (7.8-10.44); Carbon Dioxide 27 mmol/L (22-29); Chloride 95 mmol/L (98-107); Estimated GFR-MDRD 56; Globulin 5.2 g/dL (2.4-3.5); Protein, Total 8.4 g/dL (6.0-8.3)
--- NOTE | 2016-12-11 20:38 | CT ---
CT NECK WITH CONTRAST: Date: 12/11/16 Time: 6:22 p.m. HISTORY: 51-year-old female status post surgical resection of left very large thyroid malignant neoplastic tu mor mass (papillary thyroid cancer, according to ER physician), and malignant necrotic left cervical lymph nodes. Patient now presents with lactic acidosis, pain, and displacement of tracheostomy tube . COMPARISON: 11/05/16. FINDINGS: There is a new tracheostomy tube, with distal tip in satisfactory position in the upper trachea. The trachea and the left and right main stem bronchi, are patent and clear. Lung apices are clear. The huge left thyroid tumor mass and most of the necrotic, malignant left cervical lymph nodes at levels II, III, and IV, have been resected. There are skin collin anteriorly just inferior to the tracheo stomy, which extends laterally bilaterally. The left skin collin extend far laterally, deep to whic h there is an approximately 4 x 2 x 2 cm fluid collection that contains a large amount of gas. This fluid collection is surrounded by moderately thick, enhancing mcgrath, and mild surrounding fat strand ing. This could be a postsurgical hematoma or abscess. This collection is located in the fat lateral to the paraspinal musculature and spans from the C2 level to the C3-4 level. There is another collection of gas and fluid in the retropharyngeal space, located at midline and slightly to the left of midline. It measures approximately 1 cm in anteroposterior dimension, but it spans approximately 4.5 cm in craniocaudal dimension. At the left paracentral aspect of this collec tion, there are enhancing soft tissue masses which may represent residual solid components of the tu mor, measuring approximately 2 x 1 x 2.5 cm. The collection also extends laterally where it communic ates with a collection of gas and fluid located between the left thyroid cartilage and the left comm on carotid artery. Soft tissue density material, either phlegmon or postsurgical hematoma, extends into the left paraph aryngeal space. Again noted is the diffuse enlargement of the palatine tonsils and lingual tonsil. Many of the bilateral cervical lymph nodes that are mildly enlarged, remain. IMPRESSION: 1. Status post surgical resection of the majority of the volume of the very large left thyroid neoplastic tumor mass. 2. Several fluid collections, one in the upper lateral superficial neck, and at least two colle ctions that communicate with each other in the left retropharyngeal space and left carotid space. It is difficult to determine whether these represent abscesses or postsurgical residual hematomas. 3. Small soft tissue density material that remains in the left retropharyngeal/carotid space ma y represent residual neoplastic tumor material. 4. Tracheostomy tube in satisfactory position. POS: [facility]
== END 2016-12-11 19:37 | disposition home or self-care (01) ==
LOC: ERS 16:33
DX: J95.03 Malfunction of tracheostomy stoma (principal); E11.9 Type 2 diabetes mellitus without complications; E03.9 Hypothyroidism, unspecified; I10 Essential (primary) hypertension; F17.210 Nicotine dependence, cigarettes, uncomplicated
CPT/HCPCS: 36415; 70491; 80053; 83605; 85025; 87040

== ENCOUNTER 2017-05-24 12:37 | Outpatient (CLI) | payer OTHER, SELFPAY ==
--- NOTE | 2017-05-24 18:05 | NM ---
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 Patient is post thyroidectom y. FINDINGS/IMPRESSION: Thyroid ablation therapy was discussed with the patient as well as the patient's family. Patient as w ell as family member verbalized understanding the need for treatment. Precautionary measures includin g contact precautions were discussed prior to administration of thyroid capsules for ablation therapy . Again patient verbalized understanding, and the patient was also provided an information sheet incl uding precautionary measures post thyroid ablation. The patient was administered 149 mCi of Iodine 131 PO in two separate capsules as determined by Dr. Manju ramirez. Patient was briefly monitored in the Nuclear Medicine department prior to discharge. Discharg e instruction sheet and precautionary measures were provided to the patient. Follow up I131 scan is scheduled for 06-03-17. POS: [facility]
== END 2017-05-24 12:38 | disposition home or self-care (01) ==
LOC: NM 12:37
PROVIDERS: ATTEND Otolaryngology Plastic Surgery within the Head & Neck
DX: C73 Malignant neoplasm of thyroid gland (principal); E66.01 Morbid (severe) obesity due to excess calories
CPT/HCPCS: 79005; A9517

== ENCOUNTER 2017-06-03 13:34 | Outpatient (CLI) | payer OTHER ==
--- NOTE | 2017-06-03 15:22 | NM ---
WHOLE BODY I 131 SCAN: Date: 06/03/17 HISTORY: 51-year-old female with well differentiated thyroid carcinoma and metastatic carcinoma of single lymp h node by pathologic diagnosis. The patient is status post thyroidectomy and ablation with 149 millic uries on 05/24/17. Whole body imaging was performed 10 days following the ablation therapy. FINDINGS: Intense uptake is seen in the maxillary sinuses on either side corresponding to mucosal disease noted on the CT scan of neck dated 12/11/16. Focally increased uptake is seen in the neck, which may either be in the residual thyroid tissue or s ite of healing tracheostomy removal. Mild uptake in the midline of the neck is likely within the aerodigestive tract. There is physiologic activity in the GI and tracts, and the liver. No other abnormal areas of tracer localization are seen. IMPRESSION: No evidence of distant metastatic disease. POS: [facility]
== END 2017-06-03 13:35 | disposition home or self-care (01) ==
LOC: NM 13:34
PROVIDERS: ATTEND Otolaryngology Plastic Surgery within the Head & Neck
DX: C73 Malignant neoplasm of thyroid gland (principal)
CPT/HCPCS: 78018

== ENCOUNTER 2018-04-02 15:31 | Emergency (ER) | payer SELFPAY ==
[2018-04-02 16:18] LABS: #Eosinphils 0.1 thou/uL (0.0-0.7); #Lymphocytes 0.7 thou/uL (1.20-3.40); #Monocytes 0.3 thou/uL (0.11-0.59); #Neutrophils 6.7 thou/uL (1.40-6.50); %Basophils 0.1 % (0.0-1.0); %Eosinophils 0.7 % (0.0-10.0); %Lymphocytes 9.3 % (21.0-51.0); %Monocytes 3.5 % (0.0-10.0); %Neutrophils 86.4 % (42.0-75.0); Hemoglobin 12.1 g/dL (12.0-16.0); Mean Corpuscular HGB CONC 33.3 g/dL (32.0-36.0); Mean Corpuscular Hemoglobin 30.9 pg (27.0-31.0); Mean Corpuscular Volume 92.8 fL (78.0-98.0); Mean Platelet Volume 7.8 fL (7.4-10.4); Platelet Count 294 thou/uL (130-400); RBC Distribution Width 11.3 % (11.5-14.5); Red Blood Cell (RBC) Count 3.92 mill/uL (4.20-5.40); White Blood Cell (WBC) Count 7.7 thou/uL (4.8-10.8)
[2018-04-02] MEDS ORDERED: ISOVUE-370 76%-LOCM 1 ML ONE (16:36)
[2018-04-02 16:38] LABS: ALT (SGPT) 22 U/L (8-55); AST (SGOT) 42 U/L (5-34); Albumin 4.2 g/dL (3.5-5.0); Alkaline Phosphatase 102 U/L (40-150); Anion Gap 12 mmol/L (10-20); BUN (Urea Nitrogen) 13 mg/dL (7.0-18.7); Bilirubin, Total 1.2 mg/dL (0.2-1.2); Calc. Creatinine Clearance 0 mL/min (70-130); Calcium 9.5 mg/dL (7.8-10.44); Carbon Dioxide 30 mmol/L (22-29); Chloride 99 mmol/L (98-107); Estimated GFR-MDRD 73; Globulin 4.3 g/dL (2.4-3.5); Glucose 134 mg/dL (70-105); Lipase 65 U/L (8-78); Potassium 3.6 mmol/L (3.5-5.1); Protein, Total 8.5 g/dL (6.0-8.3); Sodium 137 mmol/L (136-145)
[2018-04-02 17:48] LABS: Bilirubin Small (Negative); Blood, Urine Negative (Negative); Clarity CLOUDY (Clear); Glucose, Urine (Dipstick) Negative (Negative); Leukocyte Moderate (Negative); Nitrite Negative (Negative); Protein, Urine (Dipstick) 30 mg/dL (Neg-Trace); Specific Gravity, Urine 1.023 (1.002-1.036); pH, Urine 6.5 (5.0-9.0)
[2018-04-02 17:51] LABS: Pathc Cast-AUWi Flag 1.16 (0-2.49); Pregnancy Test - Urine (BHCG) Negative (Negative); Pregu Control Background? CLEAR/WHITE (CLR/WHITE); Pregu Control Bar Appear? YES (CONTROL BAR); Specific Gravity 1.023 (1.002-1.036); Squamous Epithelial 0-3 HPF (0-3); WBC/HPF 21-50 HPF (0-3)
[2018-04-02 18:00] LABS: Bacteria/HPF 1+ HPF (None Seen); Hyaline Casts/LPF NONE SEEN LPF (0-3 Hyaline); RBC/HPF None Seen HPF (0-3)
[2018-04-02] MEDS ORDERED: Ondansetron PF 4 MG/2 ML Vial ONE (18:26)
[2018-04-02] MEDS ORDERED: Morphine 4 MG/ML VIAL ONE (18:26)
--- NOTE | 2018-04-02 18:38 | RAD ---
CHEST ONE VIEW 04/02/18 HISTORY: Abdominal pain, nausea and vomiting. COMPARISON: 11/06/16. FINDINGS: Heart size is within normal limits. The lungs are clear. No pneumonia, edema, or pleural effusion. IMPRESSION: No acute intrathoracic disease. POS: [facility]
--- NOTE | 2018-04-02 19:37 | CT ---
ABDOMEN AND PELVIC CT SCAN WITH IV CONTRAST: 04/02/18 HISTORY: Abdominal pain. Mild vertical linear stranding in the left base, nonspecific. Small hiatal hernia. The gallbladder de monstrates some stones in the dependent portion of the gallbladder which is borderline distended but no abnormal wall thickening or pericholecystic abnormal fat stranding to suggest acute cholecystitis by CT. The common bile duct is minimally dilated at 0.8 cm. No intrahepatic ductal dilatation. The pa ncreas, spleen, adrenal glands are unremarkable. There is a tiny nonobstructing left renal calculus. There are several hypodensities involving the left kidney. The largest posteriorly and medial in the mid kidney measures 1.7 x 2.3 cm in size and is of higher attenuation than typically expected fro a s imple renal cyst. This raises concern for either a complicated cyst or potentially a hypovascular so lid mass. A prior chest CT scan dated 01/05/17 study is reviewed and there is a nodular focus in the l eft kidney seen at least partially at that time with no significant change. Consider nonemergent [facility] owup CT scan with and without contrast with multiphase images with renal mass protocol for further as sessment of this . Normal appearing at least partially visualized appendix. 3 cm diameter mass in the uterine body, evid ence for an intrauterine fibroid. No abscess, adenopathy, or abnormal fluid collection. No bowel obst ruction. IMPRESSION: Cholelithiasis with borderline distended gallbladder but no CT evidence for acute cholecystitis. Mild common bile duct dilatation. Several left renal hypodensities not clearly typically benign cysts and additional followup imaging as above should be considered for further assessment on a nonemergent sis. Mild vertical linear stranding in the left lung base, nonspecific. Evidence for an intrauterine fibroid. No CT evidence for acute appendicitis. Minimal colonic diverticulosis without acute divertic ulitis. No evidence for other significant acute process. POS: [facility]
== END 2018-04-02 20:34 | disposition home or self-care (01) ==
LOC: ERS 15:31
DX: N39.0 Urinary tract infection, site not specified (principal); N28.1 Cyst of kidney, acquired; E11.9 Type 2 diabetes mellitus without complications; I10 Essential (primary) hypertension; F17.210 Nicotine dependence, cigarettes, uncomplicated
CPT/HCPCS: 36415; 71045; 74177; 80053; 81003; 81015; 81025; 83690; 84484; 85025; 93005; 96361; 96374; 96375; J2270; J2405; Q9966

== ENCOUNTER 2021-08-24 18:26 | Emergency (ER) | payer SELFPAY ==
[2021-08-24] MEDS ORDERED: Acetaminophen 325 MG TAB ONE (19:32)
[2021-08-24] MEDS ORDERED: Dexameth. Sod Phosp. 10 MG/ML (CHEMO USE ONLY) ONE (19:32)
[2021-08-24] MEDS ORDERED: Ibuprofen 200 MG TAB ONE (19:32)
== END 2021-08-24 20:10 | disposition home or self-care (01) ==
LOC: ERS 18:26
DX: H66.92 Otitis media, unspecified, left ear (principal); J06.9 Acute upper respiratory infection, unspecified; Z20.822 Contact with and (suspected) exposure to COVID-19
CPT/HCPCS: 96372; 99283; J1100; U0003; U0005